=== PATIENT | male | born 1980 | race Hispanic/Latino ===

== ENCOUNTER 2022-02-16 22:00 | Emergency (ER) | payer SELFPAY ==
[2022-02-16 22:51] VITALS: BP 165/99
--- NOTE | 2022-02-16 23:32 | XRay Report ---
RIGHT HAND 3 VIEW(S) INDICATION / CLINICAL INFORMATION: right middle finger injury COMPARISON: None available. FINDINGS: Soft tissue swelling is suggested at the PIP. Mild hyperextension is present without obvious avulsion injury. No acute fractures are demonstrated. IMPRESSION: 1. No acute fractures. Ligamentous injury along the palmar surface of the right lung cannot entirely excluded. Signer Name: Braydon Oneill II, MD Signed: 02/16/2022 11:27 PM Workstation Name: [id number] History
[2022-02-17] MEDS ORDERED: IBUPROFEN 600 MG TAB PO ONE (00:55)
[2022-02-17] MEDS ORDERED: ACETAMINOPHEN 500 MG TAB PO ONE (00:55)
--- NOTE | 2022-02-17 01:41 | Emergency Department Report ---
ED Upper Extremity Inj HPI - General Chief Complaint: Extremity Injury, Upper Stated Complaint: POSS FRACTURE OF THIRD DIGIT Source: patient Mode of arrival: Ambulatory Limitations: No Limitations - History of Present Illness Initial Comments: Patient is a 42-year-old male with past medical history of hypertension, anxiety and depression who presents to the ED with complaint of acute onset persistent right hand and right middle finger pain with mild swelling after a metallic pellet hit his right hand at work about 6 hours ago. Patient states that the pain is worse with any active range of motion. Patient denies dizziness, syncope, chest pain or shortness of breath, fall, heavy lifting, nausea and vomiting, headache, numbness and tingling or weakness of upper extremities bilaterally. MD Complaint: Injury to:: right, hand, finger (middle finger pain and swelling) -: Sudden, hour(s) (6) Other Extremity Injury: Fingers: Right (Distal right middle finger injury and pain) Other Injuries: none Place: work Severity scale (0 -10): 7 Improves With: none Worsens With: movement of extremity Context: direct blow (Right hand and middle finger crushed by a metallic pallet at work), injury Associated Symptoms: denies other symptoms. denies: weakness, numbness, neck pain, suspects foreign body, nausea/vomiting, heard/felt popping sensat - Related Data Previous Rx's Medication Instructions Recorded Last Taken Type Ibuprofen [Motrin] 800 mg PO Q8HR PRN #30 tablet 02/17/22 Unknown Rx Allergies Allergy/AdvReac Type Severity Reaction Status Date / Time No Known Allergies Allergy Unverified 02/16/22 22:51 ED Review of Systems ROS: Stated complaint: POSS FRACTURE OF THIRD DIGIT Other details as noted in HPI Constitutional: denies: chills, fever Eyes: denies: eye pain, eye discharge, vision change ENT: denies: ear pain, throat pain Respiratory: denies: cough, shortness of breath, wheezing Cardiovascular: denies: chest pain, palpitations Endocrine: no symptoms reported Gastrointestinal: denies: abdominal pain, nausea, diarrhea Genitourinary: denies: urgency, dysuria Musculoskeletal: arthralgia (Distal right middle finger pain with swelling), other (Right hand pain). denies: back pain, joint swelling Skin: denies: rash, lesions Neurological: denies: headache, weakness, paresthesias Psychiatric: denies: anxiety, depression Hematological/Lymphatic: denies: easy bleeding, easy bruising ED Past Medical Hx - Past Medical History Previous Medical History?: Yes Hx Hypertension: Yes Hx Psychiatric Treatment: Yes (Anxiety, Depression) - Surgical History Past Surgical History?: No - Social History Smoking Status: Never Smoker Substance Use Type: None - Medications Home Medications: Home Medications Medication Instructions Recorded Confirmed Last Taken Type Ibuprofen [Motrin] 800 mg PO Q8HR PRN #30 tablet 02/17/22 Unknown Rx ED Physical Exam - General Limitations: No Limitations General appearance: alert, in no apparent distress - Head Head exam: Present: atraumatic, normocephalic, normal inspection - Eye Eye exam: Present: normal appearance, PERRL, EOMI Pupils: Present: normal accommodation - ENT ENT exam: Present: normal exam, normal orophraynx, mucous membranes moist, TM's normal bilaterally, normal external ear exam - Neck Neck exam: Present: normal inspection, full ROM. Absent: tenderness - Respiratory Respiratory exam: Present: normal lung sounds bilaterally. Absent: respiratory distress, wheezes, rales, rhonchi, chest wall tenderness, accessory muscle use, decreased breath sounds, prolonged expiratory - Cardiovascular Cardiovascular Exam: Present: regular rate, normal rhythm, normal heart sounds. Absent: systolic murmur, diastolic murmur, rubs, gallop - GI/Abdominal GI/Abdominal exam: Present: soft, normal bowel sounds. Absent: tenderness, guarding, rebound, hyperactive bowel sounds, hypoactive bowel sounds, organomegaly - Extremities Exam Extremities exam: Present: normal inspection, full ROM, tenderness (Palpable distal right middle finger tenderness with mild swelling; mild right hand tenderness), normal capillary refill, joint swelling. Absent: pedal edema, calf tenderness - Back Exam Back exam: Present: normal inspection, full ROM. Absent: tenderness, CVA tenderness (R), CVA tenderness (L), muscle spasm, paraspinal tenderness, vertebral tenderness - Neurological Exam Neurological exam: Present: alert, oriented X3, CN II-XII intact, normal gait, reflexes normal - Psychiatric Psychiatric exam: Present: normal affect, normal mood - Skin Skin exam: Present: warm, dry, intact, normal color. Absent: rash ED Course Vital Signs 02/16/22 02/16/22 22:46 23:07 Temperature 98.2 F Pulse Rate 96 H Respiratory 18 Rate Blood Pressure 165/99 O2 Sat by Pulse 98 98 Oximetry ED Medical Decision Making - Radiology Data Radiology results: report reviewed, image reviewed [facility] [address] [place] [address] XRay Report Signed Patient: ROME PANIAGUA MR#: [id number] : 1980 Acct:[id number] Age/Sex: 42 / M ADM Date: 02/16/22 Loc: ED Attending Dr: Ordering Physician: BRADEN CARTER MD Date of Service: 02/16/22 Procedure(s): XR hand 3+V RT Accession Number(s): [id number] cc: ED MD RAUL Fluoro Time In Minutes: RIGHT HAND 3 VIEW(S) INDICATION / CLINICAL INFORMATION: right middle finger injury COMPARISON: None available. FINDINGS: Soft tissue swelling is suggested at the PIP. Mild hyperextension is present without obvious avulsion injury. No acute fractures are demonstrated. IMPRESSION: 1. No acute fractures. Ligamentous injury along the palmar surface of the right lung cannot entirely excluded. Signer Name: Jan Fontaine II, MD Signed: 02/16/2022 11:27 PM Workstation Name: [id number] History Transcribed By: JOSE Dictated By: JAN FONTAINE II, MD Electronically Authenticated By: JAN FONTAINE II, MD Signed Date/Time: 02/16/222326 DD/ 23 TD/TT: - Medical Decision Making This is a 42-year-old male with past medical history of hypertension, anxiety and depression who presents to the ED with complaint of acute onset persistent right hand and right middle finger pain with mild swelling after a metallic pellet hit his right hand at work about 6 hours ago. Patient states that the pain is worse with any active range of motion. In the ED, patient is alert and oriented x3 and is not in any distress. Patient was treated for pain in the ED. Right hand and right middle finger x-rays showed no acute fractures or subluxations. Patient distal right middle finger was splinted with a finger splint and the patient was discharged home on pain medications and advised to follow-up with his primary care physician in 7 to 10 days for reevaluation or return to the ED immediately if symptoms get worse. - Differential Diagnosis Hand contusion; finger fracture; finger sprain; hand sprain; muscle strain; Critical care attestation.: If time is entered above; I have spent that time in minutes in the direct care of this critically ill patient, excluding procedure time. ED Disposition Clinical Impression: Sprain of right middle finger Qualifiers: Encounter type: initial encounter Sprain of finger site: interphalangeal joint Qualified Code(s): S63.632A - Sprain of interphalangeal joint of right middle finger, initial encounter Contusion of right hand including fingers Qualifiers: Encounter type: initial encounter Qualified Code(s): S60.221A - Contusion of right hand, initial encounter; S60.00XA - Contusion of unspecified finger without damage to nail, initial encounter Disposition: 01 HOME / SELF CARE / HOMELESS Is pt being admited?: No Does the pt Need Aspirin: No Condition: Stable Instructions: Finger Sprain, Adult, [id number], Hand Contusion, [id number], Intermetacarpal Sprain Additional Instructions: The right hand x-ray showed no acute fractures or subluxations. Your injuries are likely musculoskeletal. Therefore take medications with food, drink plenty of fluids and follow-up with your primary care physician in 7 to 10 days for reevaluation. Return to the ED immediately if symptoms get worse. Prescriptions: Ibuprofen [Motrin] 800 mg PO Q8HR PRN #30 tablet PRN Reason: Pain , Severe (7-10) Referrals: ROSAURA MAZA MD [Primary Care Provider] - 3-5 Days Forms: Work/School Release Form(ED) Time of Disposition: 01:43 Print Language: GEORGIAN
[2022-02-17 02:03] LABS: Amphetamine Screen,Urine PRESUMPTIVE NEGATIVE; Benzodiazepines Screen,Urine PRESUMPTIVE NEGATIVE; Cannabinoid Screen,Urine PRESUMPTIVE POSITIVE; Cocaine Screen,Urine PRESUMPTIVE NEGATIVE; Methadone Screen,Urine PRESUMPTIVE NEGATIVE; Opiate Screen,Urine PRESUMPTIVE NEGATIVE
== END 2022-02-17 02:22 | disposition home or self-care (01) ==
LOC: ED 22:00
DX: S60.031A Contusion of right middle finger without damage to nail, initial encounter (principal); I10 Essential (primary) hypertension; F32.A Depression, unspecified; Z79.899 Other long term (current) drug therapy; X58.XXXA Exposure to other specified factors, initial encounter; Y93.89 Activity, other specified; Y92.89 Other specified places as the place of occurrence of the external cause; Y99.8 Other external cause status
CPT/HCPCS: 80307; 99284

== ENCOUNTER 2022-03-16 11:03 | Emergency (ER) | payer SELFPAY ==
[2022-03-16 11:53] VITALS: BP 135/86
--- NOTE | 2022-03-16 13:35 | Emergency Department Report ---
ED ENT HPI - General Chief complaint: Earache Stated complaint: EARBUD STUCK IN EAR Time Seen by Provider: 03/16/22 13:04 Source: patient Mode of arrival: Ambulatory Limitations: No Limitations - History of Present Illness Initial comments: 42-year-old white male presents to the emergency department complaining of foreign body to his right ear canal. He states that he was using his ear pods and when he went to take them out he could not get the soft way into comfort. He states that he is having some pain to the area now. MD complaint: ear pain -: Sudden, This morning Location: R ear Severity: mild Severity scale (0 -10): 3 Quality: aching Consistency: constant Associated Symptoms: denies: fever, discharge from ear - Related Data Previous Rx's Medication Instructions Recorded Last Taken Type Ibuprofen [Motrin] 800 mg PO Q8HR PRN #30 tablet 02/17/22 Unknown Rx Allergies Allergy/AdvReac Type Severity Reaction Status Date / Time No Known Allergies Allergy Unverified 03/16/22 11:54 ED Dental HPI - General Chief complaint: Earache Stated complaint: EARBUD STUCK IN EAR Time Seen by Provider: 03/16/22 13:04 Source: patient Mode of arrival: Ambulatory Limitations: No Limitations - Related Data Previous Rx's Medication Instructions Recorded Last Taken Type Ibuprofen [Motrin] 800 mg PO Q8HR PRN #30 tablet 02/17/22 Unknown Rx Allergies Allergy/AdvReac Type Severity Reaction Status Date / Time No Known Allergies Allergy Unverified 03/16/22 11:54 ED Review of Systems ROS: Stated complaint: EARBUD STUCK IN EAR Other details as noted in HPI Comment: All other systems reviewed and negative Constitutional: denies: chills, fever ENT: ear pain Respiratory: denies: shortness of breath Cardiovascular: denies: chest pain Neurological: denies: headache ED Past Medical Hx - Past Medical History Previous Medical History?: No Hx Hypertension: Yes Hx Psychiatric Treatment: Yes (Anxiety, Depression) - Surgical History Past Surgical History?: No - Social History Smoking Status: Never Smoker Substance Use Type: None - Medications Home Medications: Home Medications Medication Instructions Recorded Confirmed Last Taken Type Ibuprofen [Motrin] 800 mg PO Q8HR PRN #30 tablet 02/17/22 Unknown Rx ED Physical Exam - General Limitations: No Limitations General appearance: alert, in no apparent distress - Head Head exam: Present: atraumatic, normocephalic - Eye Eye exam: Present: normal appearance. Absent: conjunctival injection - Expanded ENT Exam Expanded TM/Canal exam: Foreign Body: Right TM - Neck Neck exam: Present: normal inspection. Absent: lymphadenopathy - Respiratory Respiratory exam: Absent: respiratory distress - Cardiovascular Cardiovascular Exam: Present: regular rate - GI/Abdominal GI/Abdominal exam: Absent: distended - Extremities Exam Extremities exam: Present: normal inspection - Back Exam Back exam: Present: normal inspection - Neurological Exam Neurological exam: Present: alert, oriented X3, normal gait - Psychiatric Psychiatric exam: Present: normal affect, normal mood - Skin Skin exam: Present: warm, dry, intact, normal color ED Course Vital Signs 03/16/22 11:51 Temperature 98.2 F Pulse Rate 74 Respiratory 18 Rate Blood Pressure 135/86 [Left] O2 Sat by Pulse 99 Oximetry - Foreign Body Removal Ear Location: ear canal (R) Foreign Body Suspected: plastic bead/other plasti Foreign Body Removed: yes Foreign Body Removal Technique: forceps (Alligator forceps) Tympanic Membrane Intact: Yes Patient Tolerated Procedure: well Complications: none ED Medical Decision Making - Medical Decision Making 42-year-old white male presents to the emergency department complaining of foreign body to his right ear canal. He states that he was using his ear pods and when he went to take them out he could not get the soft way into comfort. He states that he is having some pain to the area now. Exam consistent for foreign body to right ear canal. Foreign body removed per my procedure note, and patient tolerated well. Patient discharged and advised to follow-up with primary care provider if worsening symptoms and return to the emergency department as needed. He verbalized understanding of and agreement with plan of care. Critical care attestation.: If time is entered above; I have spent that time in minutes in the direct care of this critically ill patient, excluding procedure time. ED Disposition Clinical Impression: Acute foreign body of ear canal Qualifiers: Encounter type: initial encounter Laterality: right Qualified Code(s): T16.1XXA - Foreign body in right ear, initial encounter Disposition: HOME / SELF CARE / HOMELESS Is pt being admited?: No Does the pt Need Aspirin: No Condition: Stable Instructions: Ear Foreign Body, [id number] Additional Instructions: Follow-up with your primary care provider or in the emergency department as needed. Referrals: ROSAURA MAZA MD [Staff Physician] - 3-5 Days Time of Disposition: 13:35
== END 2022-03-16 14:47 | disposition left against medical advice (07) ==
LOC: ED 11:03
DX: T16.1XXA Foreign body in right ear, initial encounter (principal); X58.XXXA Exposure to other specified factors, initial encounter; Y93.89 Activity, other specified; Y92.89 Other specified places as the place of occurrence of the external cause; Y99.8 Other external cause status
CPT/HCPCS: 99281